=== PATIENT | male | born 1940 | race Caucasian/White ===

== ENCOUNTER → 2017-06-05 | Outpatient (CLI) | payer MEDICARE, OTHER | END | disposition home or self-care (01) | LOC: KCIC 15:30 | DX: M25.551 Pain in right hip (principal); J44.9 Chronic obstructive pulmonary disease, unspecified; G89.29 Other chronic pain | CPT/HCPCS: 73502 ==

== ENCOUNTER → 2017-06-14 | Outpatient (CLI) | payer MEDICARE, OTHER | END | disposition home or self-care (01) | LOC: KCIC MRI 14:31 | DX: M48.061 Spinal stenosis, lumbar region without neurogenic claudication (principal); M25.48 Effusion, other site | CPT/HCPCS: 72148 ==

== ENCOUNTER → 2017-07-18 | Outpatient (CLI) | payer MEDICARE, OTHER ==
[~2017-07-18] MED LIST: IOHEXOL 180 MG/ML 10 ML VIAL.; LIDOCAINE 1% PF 2 ML VIAL.; methylPREDNISolone ACETATE 40 MG/ML VIAL.; methylPREDNISolone ACETATE 80 MG/ML VIAL.
== END ==
LOC: PNCL 13:03
DX: M51.16 Intervertebral disc disorders with radiculopathy, lumbar region (principal); M48.061 Spinal stenosis, lumbar region without neurogenic claudication; M96.1 Postlaminectomy syndrome, not elsewhere classified; M46.1 Sacroiliitis, not elsewhere classified; J44.9 Chronic obstructive pulmonary disease, unspecified; K21.9 Gastro-esophageal reflux disease without esophagitis; F32.9 Major depressive disorder, single episode, unspecified; M19.049 Primary osteoarthritis, unspecified hand; M19.019 Primary osteoarthritis, unspecified shoulder; M19.91 Primary osteoarthritis, unspecified site; Z98.42 Cataract extraction status, left eye; Z98.41 Cataract extraction status, right eye; Z98.890 Other specified postprocedural states
CPT/HCPCS: 62323; J1030; J1040; Q9965

== ENCOUNTER → 2017-08-07 | Outpatient (CLI) | payer MEDICARE, OTHER | END | disposition home or self-care (01) | LOC: PNCL 10:50 | DX: M46.1 Sacroiliitis, not elsewhere classified (principal); M51.16 Intervertebral disc disorders with radiculopathy, lumbar region; M48.061 Spinal stenosis, lumbar region without neurogenic claudication; J44.9 Chronic obstructive pulmonary disease, unspecified | CPT/HCPCS: G0463 ==

== ENCOUNTER → 2017-10-19 | Outpatient (CLI) | payer MEDICARE, OTHER ==
[2015-08-12 13:10] VITALS: BP 107/61
[~2017-10-19] MED LIST changes: +ATOR20TA58 PO; +DOXA1TAB2 PO; +GABA-586 PO; -IOHEXOL 180 MG/ML 10 ML VIAL.; +IOHEXOL 180 MG/ML 10 ML VIAL. ONE; -LIDOCAINE 1% PF 2 ML VIAL.; +LIDOCAINE 2% PF 2ML VIAL. ONE; +MELO15TA23 PO; +NAPR220C4 PO; +OMEP20TA63 PO; +RANI-275 PO; +TRAM50TA PO; -methylPREDNISolone ACETATE 40 MG/ML VIAL.; +methylPREDNISolone ACETATE 40 MG/ML VIAL. ONE; -methylPREDNISolone ACETATE 80 MG/ML VIAL.; +methylPREDNISolone ACETATE 80 MG/ML VIAL. ONE
--- NOTE | 2017-10-19 22:57 | PAIN ---
DATE OF SERVICE: 10/19/2017 DIAGNOSES: 1. Lumbar radiculopathy with lumbar degenerative disk disease. 2. Lumbar spinal stenosis. 3. Post-lumbar laminectomy syndrome. HISTORY OF PRESENT ILLNESS: The patient is a 76-year-old male who returns for followup status post lumbar epidural steroid injection x 1 on 07/18/2017. The patient did very well with this with near 90% improvement. We had held off on any injections after that time, but the pain is returning now in the last few weeks in the low back, right lower extremity, posterior gluteus, posterior thigh, posterior leg and the lower leg. The patient reports it is stabbing, constant, becoming more sharp, more unbearable and more severe with time, worse with walking and standing. He is using a walker at all times. His leg has been giving out on him as well. The patient reports pain is 9 on a scale 10 at its worst, 9 on an average and 9 at its least and 9 today. The patient reports no new motor or sensory deficits. It has been waking him from sleep about every 4-5 hours, sometimes as long as 6, but usually little shorter. He has to reposition, take pain medication, get out of bed. It is becoming much more noticeable. The patient reports no new motor or sensory deficits, but significant fatigability of the right leg and difficulty with weightbearing as it was previously. The patient reports no other changes. PHYSICAL EXAMINATION: VITAL SIGNS: The patient's blood pressure is 112/57, pulse 51, respirations 18, temperature 97.7 degrees Fahrenheit. Height is 5 feet 4 inches, weight 160 pounds. GENERAL: The patient is awake, alert, oriented, appropriate, very pleasant demeanor. HEENT: Head shows normocephalic, atraumatic. Extraocular movements are intact, symmetrical. Oral cavity: Mucous membranes are moist and pink. Dentition is intact. NECK: Shows anterior throat supple without palpable lymphadenopathy. Swallow reflex is symmetrical. CHEST: Shows normal with inspection. Breath sounds clear to auscultation bilaterally. HEART: Shows S1, S2 clear. No murmurs auscultated. ABDOMEN: Soft, nontender, nondistended. No palpable organomegaly is noted. No rebound or guarding demonstrated. BACK: Shows spine grossly in the midline. Flattening of lumbar lordotic curvature. Lumbar paraspinous muscle shows symmetrical on inspection with well-healed surgical scar noted in the midline. The patient's back shows good rotation of motion of lumbar spine, both laterally as well as extension and flexion without significant pain reported with any of these maneuvers. EXTREMITIES: Lower extremities show deep tendon reflexes 1+ in the patellar and tendo calcaneus tendons. Motor exam is approximately 4 on a scale of 5, but equal and symmetrical with dorsiflexion, extension, quadriceps and hamstring flexion. Peripheral pulses are 1+ posterior tibia. No peripheral edema is noted bilaterally. Options were discussed with the patient. The patient's old chart was reviewed as was his current medication regimen updated. Current review of systems updated today as well. We will proceed with second in this series of lumbar epidural steroid injection today with fluoroscopic guidance. Risks were again discussed including, but not limited to bleeding, infection, possibility of epidural hematoma, subsequent neurological compromise, dural puncture, headaches, spinal cord and/or nerve damage, side effects of steroid medication and poor results regarding pain control. The patient understands and wished to proceed. The patient will return to the clinic in approximately 2 weeks for followup; was counseled on return appointment, activity level and side effects to be aware of. DIAGNOSIS: 1. Lumbar radiculopathy with lumbar spinal stenosis. 2. Lumbar degenerative disk disease. 3. Post-lumbar laminectomy syndrome. PROCEDURE: Lumbar epidural steroid injection, translaminar approach at the L5-S1 level using C-arm fluoroscopic guidance under sterile prep and drape using local anesthetic. MEDICATION INJECTED: A total of 120 mg Depo-Medrol plus 10 mL of preservative-free normal saline and 2 mL of Isovue for contrast. CONDITION AT DISCHARGE: Stable. The patient tolerated the procedure well, had no complications. RICARDO ROSARIO MD DR: ELIDA/jaye JOB#: [id number] / [id number]
== END | disposition home or self-care (01) ==
LOC: PNCL 13:11
PROVIDERS: ATTEND Anesthesiology
DX: M51.16 Intervertebral disc disorders with radiculopathy, lumbar region (principal); M96.1 Postlaminectomy syndrome, not elsewhere classified; M48.061 Spinal stenosis, lumbar region without neurogenic claudication
CPT/HCPCS: 62323; J1030; J1040; J2001; Q9965

== ENCOUNTER → 2017-11-28 | Outpatient (CLI) | payer MEDICARE, OTHER ==
[2015-08-12 13:10] VITALS: BP 107/61
[~2017-11-28] MED LIST changes: +HYDR-2762 PO; -IOHEXOL 180 MG/ML 10 ML VIAL. ONE; -LIDOCAINE 2% PF 2ML VIAL. ONE; +LIDOCAINE 2% PF Vial for OR 5 ML VIAL. ONE; -methylPREDNISolone ACETATE 40 MG/ML VIAL. ONE; -methylPREDNISolone ACETATE 80 MG/ML VIAL. ONE
--- NOTE | 2017-11-28 19:49 | PAIN ---
DATE OF SERVICE: 11/28/2017 DIAGNOSES: Lumbar radiculopathy with lumbar degenerative disk disease, lumbar spinal stenosis and post-lumbar laminectomy syndrome. HISTORY OF PRESENT ILLNESS: The patient is a 76-year-old male who returns for followup status post preauthorization for spinal cord stimulator trial. The patient already had lumbar epidural steroid injections with good initial relief, but very short lived. The patient had been approved for spinal cord stimulator temporary leads placement today and would like to proceed with this. We also had psychological testing with Dr. Lisa Mcfarland with good category of risk stratification for the stimulator both temporary and permanent. The patient would like to proceed. He reports still significant pain in the low back and into the right greater than left lower extremity, mostly in the posterior gluteus, posterior thigh, lateral thigh, anterior thigh, posterior calf and anterior calf and into the foot, worse with lying down, worse with standing, worse with weightbearing, walking and changing positions; better with sitting. The patient reports it is 8 on a scale of 10 at all times, worst, average and least and is 8 today. The patient reports no new motor or sensory deficits, no new changes or other complaints. PHYSICAL EXAMINATION: VITAL SIGNS: The patient's blood pressure is 132/70, pulse 97, respirations 16, temperature 97.9 degrees Fahrenheit. Height is 5 feet 5 inches, weight is 160 pounds. GENERAL: The patient is awake, alert, oriented, appropriate, is very pleasant demeanor. The patient is accompanied by his spouse. HEENT: Shows normocephalic and atraumatic. Extraocular movements are intact, symmetrical. Oral cavity: Mucous membranes moist and pink. Dentition is intact. NECK: Shows anterior throat supple without palpable lymphadenopathy noted. Swallow reflex symmetrical. CHEST: Shows normal on inspection. Breath sounds clear to auscultation bilaterally. HEART: Shows S1, S2 clear. No murmurs auscultated. ABDOMEN: Soft, nontender, nondistended. No palpable organomegaly is noted. No rebound or guarding demonstrated. BACK: Shows spine grossly in the midline. Flattening lumbar lordotic curvature is noted with some slight increase in thoracic kyphosis. The patient's lumbar paraspinous muscle shows symmetrical on inspection with well-healed surgical scarring with palpation shows moderate tenderness bilaterally diffusely in the middle, upper and lower lumbar distribution of paraspinous muscles. The patient's back shows good rotational motion, however, both laterally as well as extension and flexion without significant increase in pain. EXTREMITIES: Lower extremities show deep tendon reflexes 1+ in the patella and tendo calcaneus tendons. Motor exam is approximately 4 on a scale of 5, but equal and symmetrical dorsiflexion, extension, quadriceps and hamstring flexion. The patient is using a walker to ambulate with a shuffling gait. Peripheral pulses are 1+ posterior tibia. No peripheral edema is noted. Options were discussed with the patient. The patient's old chart was reviewed as his current medication regimen updated. Current review of systems updated today as well and we will proceed with a lumbar spinal cord stimulator temporary lead placement x 2 with fluoroscopic guidance today. Risks were discussed including but not limited to bleeding, infection, possibility of epidural hematoma, subsequent neurological compromise, dural punctures, headaches, spinal cord and/or nerve damage as well as exposure to fluoroscopy and poor results regarding pain control. The patient understands and wished to proceed. The patient will return to the clinic in approximately 1 week. We will plan on withdrawal of the temporary leads and reassessment of the patient's pain situation at that time. DIAGNOSES: Lumbar radiculopathy with lumbar degenerative disk disease, lumbar spinal stenosis and post-lumbar laminectomy syndrome. PROCEDURE: Temporary lead spinal cord stimulator placement x 2 under sterile prep and drape using local anesthetic and fluoroscopic guidance. Under sterile prep and drape, patient in prone position with AP and lateral fluoroscopy, the insertion site with two 14-gauge Hustead needles with stylets to enter the epidural space, which was performed at the T12-L1, entrance site with negative aspiration x 2. Spinal cord stimulator leads were then advanced under direct fluoroscopic vision without difficulty and without paraesthesia to lay in the midline with the right most lead at the top electrode at the superior endplate of T8 and the left most lead with the superior lead at the superior endplate of T9. These were confirmed with AP and lateral views to be lying in the midline and in the posterior aspect of the epidural space. [place] were withdrawn and using additional local anesthetic to anesthetize the area adjacent to the insertion site with 1% lidocaine, approximately 3 mL total used for the case. Sutures were then placed 2-0 silk with anchoring devices on the spinal cord stimulator leads themselves. Again, direct fluoroscopic vision was used to confirm no movement of the leads. This was confirmed with the right most lead in the top of T8 and the left most lead in the top of T9. The patient insertion sites were then sterilely bandaged with a Tegaderm and additional gauze and tape. The patient was taken to recovery area in good and stable condition with programming carried out with Mr. Boris Hartmann, of [email or web address]. The patient was discharged home under his own power without apparent complication. RICARDO ROSARIO MD DR: ELIDA/jaye JOB#: [id number] / [id number]
== END | disposition home or self-care (01) ==
LOC: PNCL 13:02
PROVIDERS: ATTEND Anesthesiology
DX: M51.16 Intervertebral disc disorders with radiculopathy, lumbar region (principal); M48.061 Spinal stenosis, lumbar region without neurogenic claudication; M96.1 Postlaminectomy syndrome, not elsewhere classified
CPT/HCPCS: 63650; C1897; J2001

== ENCOUNTER → 2017-12-04 | Outpatient (CLI) | payer MEDICARE, OTHER ==
[2015-08-12 13:10] VITALS: BP 107/61
[~2017-12-04] MED LIST changes: -LIDOCAINE 2% PF Vial for OR 5 ML VIAL. ONE
--- NOTE | 2017-12-04 23:48 | PAIN ---
DATE OF SERVICE: 12/04/2017 DIAGNOSES: Lumbar radiculopathy with lumbar degenerative disk disease, lumbar spinal stenosis and post-lumbar laminectomy syndrome. HISTORY OF PRESENT ILLNESS: The patient is a 76-year-old male who returns for followup status post spinal cord stimulator temporary lead placement 1 week ago. The patient has been in touch with us, as well as the arborist representative for [employer] for his spinal cord stimulation over the past week and had adjustments twice with good pain relief. The patient reports that the pain in his right leg is essentially gone, especially when he was reaching up over his head, which is when he would notice it mostly in the right leg, it is now completely subsided. The patient just has some pain in the right hip, which appears myofascial, but otherwise doing very well. The patient reports at least a 60% or better improvement with the right leg, more like 100% improvement. The patient reports his pain is 7 on a scale of 10 at worst, 6 on average, 6 at its least, and is 6 today. The patient reports it is aching and dull, but again doing much better with the stimulator. He is quite impressed that it did decrease the pain significantly. The patient reports he has been sleeping well at night, getting around, increased his activity with greater ease and comfort, walking distance is the same with his walker, but relying on it less significantly, again with some right hip pain, which he has had for several years, but appears to be more myofascial. The patient reports no new motor or sensory deficits, no new bowel or bladder incontinence or other complaints. PHYSICAL EXAMINATION: VITAL SIGNS: Today, blood pressure is 143/70, pulse 60, respirations 18, temperature is 98.0 degrees Fahrenheit, height is 5 inches, and weight is 160 pounds. GENERAL: The patient is awake, alert, oriented, appropriate, very pleasant demeanor. HEENT: Head is normocephalic, atraumatic. Extraocular movements are intact and symmetrical. Oral cavity: Mucous membranes moist and pink. Dentition is intact. NECK: Shows anterior throat supple without palpable lymphadenopathy noted. BACK: Shows spine grossly in the midline with some flattening of lumbar lordotic curvature. Lumbar paraspinous muscle shows symmetrical. Spinal cord stimulator leads were removed. Sutures cut under sterile technique and removed with the tips intact times 2. Sites clean and dry, no erythema, no drainage or swelling. Sterile bandage was applied. EXTREMITIES: The patient's lower extremities show deep tendon reflexes at 1+ in the patellar tendons. Motor exam is approximately 4 on a scale of 5, but equal and symmetrical with dorsiflexion, extension, and quadriceps and hamstring flexion. ASSESSMENT AND PLAN: Options were discussed with the patient. The patient's old chart was reviewed and his current medication regimen updated. Current review of systems updated today as well and he would like to proceed with a permanent stimulator. We will make the arrangements for this. The patient will return back once this is scheduled. RICARDO ROSARIO MD DR: ELIDA/jaye JOB#: [id number] / [id number]
== END | disposition home or self-care (01) ==
LOC: PNCL 12:29
PROVIDERS: ATTEND Anesthesiology
DX: M51.16 Intervertebral disc disorders with radiculopathy, lumbar region (principal); M48.061 Spinal stenosis, lumbar region without neurogenic claudication; M96.1 Postlaminectomy syndrome, not elsewhere classified
CPT/HCPCS: G0463

== ENCOUNTER → 2018-08-29 | Outpatient (CLI) | payer MEDICARE, OTHER ==
[2015-08-12 13:10] VITALS: BP 107/61
[~2018-08-29] MED LIST changes: -GABA-586 PO; +GABA300C18 PO; -HYDR-2762 PO; +HYDR-2765 PO
--- NOTE | 2018-08-29 16:31 | KCIC ---
Carotid doppler ultrasound History: Amaurosis fugax Multiple grayscale, color, and duplex spectral analysis waveform sonographic images were acquired of the carotid, subclavian, and vertebral arteries. Comparison: None Findings: RIGHT: PSV cm/sec EDV cm/sec Common carotid artery 88 18 Maximal internal carotid artery 88 19 External carotid artery 133 Vertebral artery 40 ICA/CCA ratio 1.0 LEFT: PSV cm/sec EDV cm/sec Common carotid artery 89 23 Maximum internal carotid artery 77 22 External carotid artery 85 Vertebral artery 60 ICA/CCA ratio 0.87 Velocities used to determine stenosis are known to correlate with NASCET angiographic criteria. There is antegrade flow in the bilateral vertebral arteries. There is mild to moderate eccentric mostly hyperechoic plaque of the common carotid arteries in the carotid bulbs extending into the internal and external carotid arteries bilaterally. Impression: 1. There is no evidence of a hemodynamically significant stenosis. There is plaque bilaterally. Electronically signed by: Daniel Coronel MD (08/29/2018 4:28 PM) [id number]
--- NOTE | 2018-08-29 16:41 | KCIC ---
CHEST PA LATERAL History: COPD, cough. COMPARISON: July 27, 2015. FINDINGS: The aorta is tortuous and ectatic, also seen previously. There is spinal stimulator lead in place overlying the lower thoracic spine. No evidence of pneumothorax. No pleural effusion. No consolidating infiltrate. Bones appear intact. IMPRESSION: No evidence of consolidating infiltrate. Electronically signed by: Presley Jimenez MD (08/29/2018 4:38 PM) [id number]
== END | disposition home or self-care (01) ==
LOC: KCIC US 12:56
PROVIDERS: ATTEND Family Medicine
DX: I65.23 Occlusion and stenosis of bilateral carotid arteries (principal); I77.819 Aortic ectasia, unspecified site; J44.9 Chronic obstructive pulmonary disease, unspecified
CPT/HCPCS: 71046; 93880

== ENCOUNTER → 2020-07-29 | Outpatient (CLI) | payer MEDICARE, OTHER ==
[2015-08-12 13:10] VITALS: BP 107/61
--- NOTE | 2020-07-29 17:04 | RAD ---
EXAM: Bilateral lower extremity arterial Doppler. HISTORY: Nonpalpable lower extremity pulses. COMPARISON: None. FINDINGS: Grayscale and Doppler analysis of the lower extremity arterial systems was performed bilate rally. On the right, there is a biphasic waveform within the common femoral artery. It is triphasic within t he deep femoral artery. There appears to be a focal stenosis within the right deep femoral artery. Th e proximal and mid right superficial femoral artery are occluded. There is reconstitution within the distal superficial femoral artery and popliteal artery with postobstructive monophasic flow. There ar e monophasic waveforms within all 3 trifurcation vessels. The dorsalis pedis artery is patent. On the left, there is a triphasic waveform within the common femoral and deep femoral arteries. They become biphasic within the proximal superficial femoral artery and monophasic in the mid superficial femoral artery. They become blunted and postobstructive within the popliteal artery, indicating addit ional significant stenosis at that level. There are postobstructive waveforms within all 3 trifurcati on vessels. The dorsalis pedis artery is patent. IMPRESSION: 1. The right proximal and mid superficial femoral artery are occluded with reconstitution distally. T here are postobstructive waveforms distal to this on the right. 2. Additional focal stenosis is suspected within the right deep femoral artery. 3. Significantly flow-limiting stenosis within the left proximal/mid superficial femoral artery and l eft popliteal artery. Electronically signed by: Charla Bermeo MD (07/29/2020 5:02 PM) [id number]
== END ==
LOC: US 15:24
PROVIDERS: ATTEND Family Medicine
DX: I70.8 Atherosclerosis of other arteries (principal); R09.89 Other specified symptoms and signs involving the circulatory and respiratory systems
CPT/HCPCS: 93925

== ENCOUNTER → 2020-10-16 | Outpatient (CLI) | payer MEDICARE, OTHER ==
[2015-08-12 13:10] VITALS: BP 107/61
--- NOTE | 2020-10-18 10:37 | CARD ---
MR#: [id number] Date of Study: 10/16/2020 Ordering Physician: ASHISH LOWE, Referring Physician: ASHISH LOWE Tech: Isabela Kaur [facility] APPROVED REPORT EXAM: Two-dimensional and M-mode echocardiogram with Doppler and color Doppler. Other Information Quality : AverageHR: 58bpm Rhythm : NSR INDICATION CAD RISK FACTORS Hypertension Obesity Hyperlipidemia Smoking 2D DIMENSIONS RVDd3.4 (2.9-3.5cm)Left Atrium(2D)3.5 (1.6-4.0cm) IVSd1.3 (0.7-1.1cm)Aortic Root(2D)3.0 (2.0-3.7cm) LVDd4.0 (3.9-5.9cm)LVOT Diameter2.4 (1.8-2.4cm) PWd1.1 (0.7-1.1cm)LVDs2.4 (2.5-4.0cm) FS (%) 39.9 %SV50.0 ml LVEF(%)71.1 (>50%) Aortic Valve AoV Peak Dannie.134.6cm/sAoV VTI32.0cm AO Peak GR.7.3mmHgLVOT Peak Dannie.82.6cm/s AO Mean GR.3mmHgAVA (VMAX)2.77cm2 Mitral Valve MV E Digatzef47.5cm/sMV DECEL [id number] MV A Bgifndho26.2cm/sE/A Ratio0.7 Pulmonary Valve PV Peak Lyonvcgs47.4cm/s LEFT VENTRICLE The left ventricle is normal size. There is mild concentric left ventricular hypertrophy. The left ve ntricular systolic function is normal and the ejection fraction is within normal range. Estimated eje ction fraction 60-65%. There is normal LV segmental wall motion. Transmitral Doppler flow pattern is Grade I-abnormal relaxation pattern. RIGHT VENTRICLE The right ventricle is normal size. There is normal right ventricular wall thickness. The right ventr icular systolic function is normal. ATRIA The left atrium size is normal. The right atrium size is normal. The interatrial septum is intact wit h no evidence for an atrial septal defect or patent foramen ovale as noted on 2-D or Doppler imaging. AORTIC VALVE The aortic valve is normal in structure and function. Doppler and Color Flow revealed trace to mild a ortic regurgitation. There is no significant aortic valvular stenosis. MITRAL VALVE The mitral valve is normal in structure and function. There is no evidence of mitral valve prolapse. There is no mitral valve stenosis. Doppler and Color-flow revealed mild mitral regurgitation. TRICUSPID VALVE The tricuspid valve is normal in structure and function. Doppler and Color Flow revealed no tricuspid valve regurgitation noted. There is no tricuspid valve stenosis. PULMONIC VALVE Doppler and Color Flow revealed no pulmonic valvular regurgitation. There is no pulmonic valvular joanne nosis. GREAT VESSELS The aortic root is normal in size. The ascending aorta is normal in size. The IVC is normal in size a nd collapses >50% with inspiration. PERICARDIAL EFFUSION There is no evidence of significant pericardial effusion. Critical Notification Critical Value: No <Conclusion> The left ventricular systolic function is normal and the ejection fraction is within normal range. E stimated ejection fraction 60-65%. There is normal LV segmental wall motion. Signed by : Jared Gee, Electronically Approved : 10/18/2020 10:37:17
== END ==
LOC: ECHO 10:50
PROVIDERS: ATTEND Internal Medicine Cardiovascular Disease
DX: I08.0 Rheumatic disorders of both mitral and aortic valves (principal); E78.5 Hyperlipidemia, unspecified; I73.9 Peripheral vascular disease, unspecified; I25.10 Atherosclerotic heart disease of native coronary artery without angina pectoris; I10 Essential (primary) hypertension; E66.9 Obesity, unspecified; F17.200 Nicotine dependence, unspecified, uncomplicated; Z68.45 Body mass index [BMI] 70 or greater, adult
CPT/HCPCS: 93306